=== PATIENT | female | born 1970 | race Caucasian/White ===

== ENCOUNTER 2017-02-08 12:47 | Emergency (ER) | payer OTHER ==
--- NOTE | ~2017-02-08 | EKG ---
PATIENT: BRANDEE HOOD UNIT #: [id number] Ventricular Rate: 69 BPM Atrial Rate: 69 BPM P-R Interval: 132 ms QRS Duration: 88 ms Q-T Interval: 414 ms QTC Calculation(Bezet): 443 ms P [place]: 26 degrees Calculated R [place]: -4 degrees Calculated T [place]: -4 degrees Diagnosis Line: Normal sinus rhythm Diagnosis Line: Inferior infarct , age undetermined Diagnosis Line: Abnormal ECG Diagnosis Line: No previous ECGs available Diagnosis Line: Confirmed by J CARLOS PILLAI MD ([id number]) on 02/11/2017 Diagnosis Line: 8:01:20 PM INTERPRETING MD: FREYA ALCALA
--- NOTE | ~2017-02-08 | CT71 ---
[facility] A Service [facility] RADIOLOGY TEXT RESULTS PATIENT: BRANDEE HOOD LOCATION: SED : 72 UNIT #: [id number] AGE: [address]: Henry Mortensen MD SEX: F ORDER DR: [id number] [address] [id number] E MR#: [id number] Acc #: [id number] NAME: BRANDEE HOOD : 1970 SEX: F STUDY DATE/TIME: 02/08/2017 14:11 UNIT: SED ROOM: STUDY DESCRIPTION: CT Head Wo Contrast Attending Physician: Henry Mortensen M.D. Ordering Physician: Henry Mortensen M.D. Primary Care Physician: Jeff Granados M.D. MEDICAL IMAGING REPORT This report is preliminary unless electronic signature is present. EXAM CT brain without contrast, 02/08/2017 COMPARISON 05/02/2010 HISTORY Dizziness, nausea beginning this morning. TECHNIQUE Axial imaging of the brain was performed without contrast media. Bone and soft tissue windows are reviewed. This CT exam was performed with one or more of the following radiation dose reduction techniques: Automatic exposure control, adjustment of mA and/or kV according to patient size, and iterative reconstruction. FINDINGS Ventricular size and configuration is normal. No intra- or extraaxial mass lesions, fluid collections or mass effect are seen. No focal areas of low attenuation or evidence of acute hemorrhage. CONCLUSION 1. Normal noncontrast CT of the brain. Dictated by... Max Yusuf M.D. THIS IS AN ELECTRONICALLY VERIFIED REPORT Max Yusuf M.D. at 02/09/2017 5:02 PM MANISH/ramin [facility] A Service [facility] RADIOLOGY TEXT RESULTS PATIENT: BRANDEE HOOD LOCATION: SED : 72 UNIT #: [id number] AGE: [address]: Henry Mortensen MD SEX: F ORDER DR: TD: 02/08/2017 16:20 JOB #: [id number] MEDICAL IMAGING REPORT Page 1 of 1
[~2017-02-08 12:47] MED LIST: ADVAIR 250-501 EACH IH; ADVAIR 2501 DISK W/D PO; ALBUTEROL MININEB NEB; ALBUTEROL17 GM INH; BACTRIM DS TABL1 TA1 PO; CENTRUM PO; CHANTIX PO; FLAGYL PO; FLEXERIL PO; FLONASE16 GM; HYCODAN60 ML 5MG/ PO; KLONOPIN PO; LANSOPRAZOLE15 MG PO; LEVAQUIN PO; LEVOTHYROXINE112 MCG PO; LEVOTHYROXINE88 MCG PO; LISINOPRIL10 MG PO; PHENERGAN25 MG PO; PRILOSEC PO; RONDEC-DM ORAL30 ML PO; ROXICODONE5 MG PO; SINGULAIR PO; SYMBICORT INH; SYNTHROID75 MCG PO; TOPAMAX PO; ULTRAM PO; VITAMIN D32000 UNI1 PO; Z-PAK
[2017-02-08 13:24] LABS: EOSINOPHIL# 0.1 X10e3 (0-0.7); LYMPHOCYTE# 1.6 X10e3 (1.0-3.5); MONOCYTE# 0.5 X10e3 (0-1.0); NEUTROPHIL# 5.4 X10e3 (1.5-7.1); RED BLOOD COUNT 4.51 X10e (3.90-5.30); WHITE BLOOD COUNT 7.6 X10e3 (4.0-10.5)
[2017-02-08 13:31] LABS: BASOPHIL# 0.1 X10e3 (0-0.3); EOSINOPHIL% 1.4 % (0.0-7.0); HEMATOCRIT 37.4 % (35.0-45.0); HEMOGLOBIN 12.1 gm/dL (12.0-16.0); LYMPHOCYTE% 21.2 % (17.0-45.0); MEAN CORPUSCULAR HEMOGLOBIN 26.8 PG (28-34); MEAN CORPUSCULAR HGB CONC 32.3 g/dL (30-36); MEAN PLATELET VOLUME 7.6 FL (6.5-11.5); NEUTROPHIL% 70.4 % (40-75); PLATELET COUNT 391 X10e3 (140-420); RED CELL DISTRIBUTION WIDTH 15.7 % (11.0-15.5)
[2017-02-08 13:35] LABS: DIFF IND NO
[2017-02-08 13:47] LABS: POC - CKMB <1.0 ng/mL (0.0-7.9); POC - TROPONIN <0.05 ng/mL (<=0.05)
[2017-02-08 13:48] LABS: BILIRUBIN, DIRECT 0.1 mg/dL (0.0-0.2); BILIRUBIN,INDIRECT 0.2 mg/dL (0.0-0.9); BILIRUBIN,TOTAL 0.3 mg/dL (0.2-2.0); BUN/CREATININE RATIO 12.85; CALCIUM SERUM 8.7 mg/dL (8.4-10.2); CREATININE SERUM 0.7 mg/dL (0.6-1.4); GLOM FILT RATE Estimated 104.6 mL/min (>60); POTASSIUM 3.9 mmol/L (3.5-5.1); PROTEIN TOTAL SERUM 7.4 g/dL (6.0-8.3)
[2017-02-08 13:57] LABS: URINE SOURCE CLEAN CATCH
[2017-02-08 14:00] LABS: MICRO INDICATED? NO; URINE APPEARANCE CLEAR; URINE BILIRUBIN NEG (NEG); URINE BLOOD NEG (NEG); URINE COLOR YELLOW; URINE GLUCOSE NEG (NORM); URINE KETONE NEG (NEG); URINE LEUKOCYTE ESTERASE NEG (NEG); URINE NITRATE NEG (NEG); URINE PROTEIN NEG (NEG); URINE SPECIFIC GRAVITY <=1.005 (1.003-1.035); URINE UROBILINOGEN 0.2 MG/DL (NORM)
== END 2017-02-08 16:31 | disposition home or self-care (01) ==
LOC: SED 12:47
PROVIDERS: Emergency Medicine
DX: H81.10 Benign paroxysmal vertigo, unspecified ear (principal); G44.209 Tension-type headache, unspecified, not intractable; J45.909 Unspecified asthma, uncomplicated; E03.9 Hypothyroidism, unspecified; Z90.49 Acquired absence of other specified parts of digestive tract; K21.9 Gastro-esophageal reflux disease without esophagitis; Z88.0 Allergy status to penicillin; Z88.8 Allergy status to other drugs, medicaments and biological substances; Z91.040 Latex allergy status
CPT/HCPCS: 70450; 80048; 80076; 81003; 82553; 83874; 84484; 85025; 93005; 96361; 96374; 96375; 99284; J1200; J1885; J2405; J2765